=== PATIENT | male | born 1925 | race Caucasian/White ===

== ENCOUNTER 2016-07-30 21:19 | Inpatient (IN) | payer MEDICARE, OTHER ==
[~2016-07-30] VITALS: Ht 160 cm; Wt 69.9 kg
[~2016-07-30 21:19] MED LIST: ACET-2154 PO; ALEN70TA45 PO; AMLO2.5T PO; ASPI81TA31 PO; ATOR10TA PO; BISA10SU61 RC; DOCU-170 PO; GUAI120L56 PO; MAGN400O4 PO; METO25TA6 PO; MULT-1119 PO; TAMS0.4C34 PO; lidocaine viscous PO
--- NOTE | 2016-07-30 22:00 | NUR ---
PT IN ROOM CALM AND COOPERATIVE WITH NO DISTRESS NOTED
[2016-07-30] MEDS ORDERED: LACT1CAP73 PO (22:07)
[2016-07-30] MEDS ORDERED: ALBU2.5V38 IH (22:08)
[2016-07-30] MEDS ORDERED: PANT40TA2 PO (22:08)
[2016-07-30] MEDS ORDERED: DIVA250T4 PO (22:08)
[2016-07-30] MEDS ORDERED: AMLO5TAB2 PO (22:08)
[2016-07-30] MEDS ORDERED: SENN8.6T11 PO (22:08)
[2016-07-30] MEDS ORDERED: MELA3TAB42 PO (22:08)
[2016-07-30 22:56] LABS: BASOPHILS # (AUTO) 0.1 K/uL (0.0-8.0); EOSINOPHILS # (AUTO) 0.2 K/uL (0.0-0.7); EOSINOPHILS % (AUTO) 2.7 % (0.0-7.0); HEMATOCRIT 37.7 % (36.7-47.1); HEMOGLOBIN 12.9 g/dL (12.5-16.3); LYMPHOCYTES # (AUTO) 2.1 K/uL (20.0-40.0); LYMPHOCYTES % (AUTO) 27.4 % (20.5-51.5); MEAN CORPUSCULAR HEMOGLOBIN 31.8 uug (23.8-33.4); MEAN CORPUSCULAR HGB CONC 34 g/dL (32.5-36.3); MEAN CORPUSCULAR VOLUME 92.8 fL (73.0-96.2); MONOCYTES # (AUTO) 0.6 K/uL (2.0-10.0); MONOCYTES % (AUTO) 8.1 % (0.0-11.0); NEUTROPHILS # (AUTO) 4.7 K/uL (1.8-8.9); NEUTROPHILS % (AUTO) 60.8 % (38.5-71.5); PLATELET COUNT (AUTO) 191 K/uL (152-348); RED BLOOD CELL COUNT(AUTO) 4.07 MIL/uL (4.06-5.63); RED CELL DISTRIBUTION WIDTH 13.3 % (12.1-16.2); WHITE BLOOD COUNT (AUTO) 7.7 K/uL (3.6-10.2)
--- NOTE | 2016-07-30 23:09 | NUR ---
PT OUT OF ROOM VIA GURNY FOR CT SCAN
[2016-07-30 23:12] LABS: AMMONIA < 10 umol/L (11-32)
[2016-07-30 23:13] LABS: ALANINE AMINOTRANSFERASE 18 U/L (16-63); ALBUMIN 3.4 g/dL (3.4-5.0); ALKALINE PHOSPHATASE 58 U/L (50-136); ASPARTATE AMINOTRANSFERASE 19 U/L (15-37); BILIRUBIN,DIRECT 0.1 mg/dL (0.0-0.2); BILIRUBIN,TOTAL 0.5 mg/dL (0.2-1.0); CALCIUM 8.8 mg/dL (8.5-10.1); CARBON DIOXIDE 29 mmol/L (21-32); CHLORIDE 105 mmol/L (98-107); CREATININE 1.1 mg/dL (0.6-1.3); GLUCOSE 108 mg/dL (74-106); POTASSIUM 4.2 mmol/L (3.5-5.1); SODIUM SERUM 142 mmol/L (136-145); TOTAL PROTEIN, SERUM 7.9 g/dL (6.4-8.2); UREA NITROGEN, BLOOD 23 mg/dL (7-18)
[2016-07-30 23:17] LABS: *BILIRUBIN,URIN NEGATIVE (NEGATIVE); *BLOOD, URINE 2+ (NEGATIVE); *COLOR,URINE YELLOW (YELLOW); *KETONES,URINE NEGATIVE (NEGATIVE); *PROTEIN,URINE 2+ (NEGATIVE); LEUKOCYTE ESTERASE ,URINE 2+ (NEGATIVE); NITRITE, URINE NEGATIVE (NEGATIVE); UGLUCOSE NEGATIVE (NEGATIVE)
[2016-07-30 23:19] LABS: TROPONIN I 0.022 ng/mL (0.00-0.056)
[2016-07-30 23:21] LABS: ACETAMINOPHEN < 2.0 ug/mL (10-30); LACTIC ACID 0.8 mmol/L (0.4-2.0)
[2016-07-30 23:31] LABS: ETHANOL < 3 MG/DL (0-0)
[2016-07-30 23:36] LABS: *CLARITY,URINE HAZY (CLEAR)
[2016-07-30 23:41] LABS: BACTERIA,URINE MODERATE /HPF (NONE SEEN); RBC,URINE 20-50 /HPF (0-3); SQUAMOUS EPITHELIAL CELL,UR MODERATE /HPF (NONE SEEN); WBC,URINE TNTC /HPF (0-3)
[2016-07-30 23:55] LABS: *AMPHETAMINE, URINE NEGATIVE (NEGATIVE); *BARBITURATE, URINE NEGATIVE (NEGATIVE); *CANNABINOID, URINE NEGATIVE (NEGATIVE); *COCCAINE, URINE NEGATIVE (NEGATIVE); *OPIATE, URINE NEGATIVE (NEGATIVE); *PHENCYCLIDINE SCREEN,URINE NEGATIVE (NEGATIVE)
--- NOTE | 2016-07-31 01:00 | NUR ---
medically cleared by dr blackwell
--- NOTE | 2016-07-31 01:50 | NUR ---
TRANSFERED TO 2ND FLOOR ROOM [facility]
[2016-07-31 01:55] VITALS: BP 162/79
--- NOTE | 2016-07-31 01:55 | NUR ---
PT WAS BROUGHT IN TO FLOOR VIA GURNEY. ADMITTED TO GPS- OVERFLOW UNDER CARE OF DR. DUMONT / DR. PEREZ. DX: PSYCHOSIS. INITIATE ADMISSION ASSESSMENT. BELONGING LISTS REVIEWED. WILL CALL FOR ORDERS.
[2016-07-31] MEDS ORDERED: MAG HYDROX/AL HYDROX/SIMETH 30 ML LIQUID UDC PO PRN (02:45)
[2016-07-31] MEDS ORDERED: ACETAMINOPHEN 325 MG TABLET PO PRN (02:45)
[2016-07-31] MEDS ORDERED: MAGNESIUM HYDROXIDE 30 ML LIQUID UDC PO PRN (02:45)
--- NOTE | 2016-07-31 03:10 | NUR ---
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 PEREZ. TO F/U IN AM REGARDING PT'S MED RECONCILIATION.
[2016-07-31 05:30] VITALS: BP 148/85
--- NOTE | 2016-07-31 06:12 | NUR ---
PT IN BED RESTING, NO SI AT THIS TIME. IN NO ACUTE SIGNS OF DISTRESS. REMAINS IN 1:1 SITTER FOR SAFETY. SAFETY MEASURES RENDERED.
[2016-07-31 07:49] VITALS: BP 153/76
[2016-07-31] MEDS ORDERED: AMLODIPINE 5 MG TABLET PO ONE (08:45)
[2016-07-31] MEDS ORDERED: METOPROLOL TARTRATE 25 MG TABLET PO ONE (08:45)
[2016-07-31] MEDS ORDERED: LACTOBACILLUS COMBO NO 10 PO SCH (10:00)
[2016-07-31] MEDS: PANTOPRAZOLE SODIUM 40 MG TABLET.DR PO SCH (10:00)
[2016-07-31] MEDS ORDERED: Medication Not On Formulary EA (Multivitamin (Multi Vitamin Daily) 1 EACH) PO SCH (10:00)
[2016-07-31] MEDS: CEPHALEXIN MONOHYDRATE 500 MG CAPSULE PO SCH ×3 (11:10→21:22)
[2016-07-31] MEDS: LACTOBACILLUS RHAMNOSUS GG 1 EACH CAPSULE PO SCH ×2 (11:10→21:04)
[2016-07-31] MEDS: DOCUSATE SODIUM 100 MG CAPSULE PO SCH ×2 (11:10→18:17)
[2016-07-31] MEDS: ASPIRIN 81 MG TAB.CHEW PO SCH (11:11)
[2016-07-31] MEDS: METOPROLOL TARTRATE 25 MG TABLET PO SCH ×2 (11:13→20:53)
[2016-07-31] MEDS: AMLODIPINE 5 MG TABLET PO SCH (11:13)
[2016-07-31] MEDS: SENNOSIDES 1 TABLET PO SCH (11:14)
[2016-07-31] MEDS: MULTIVITAMINS,THERAPEUTIC TABLET PO SCH (11:14)
--- NOTE | 2016-07-31 14:48 | NUR ---
Initial discharge plan: Pt currently resides at [facility] [[address];[place] [address]].SW with pt's son[Don, ]and he would like for the pt to return to [facility].BRET spoke with Rebekah [[phone]] from [facility] and she stated that the pt had a bed hold and was able to return when ready.BRET will speak to MD, pt, and family to ensure an appropriate discharge plan is created.SW will form a safe and proper discharge plan.
--- NOTE | 2016-07-31 16:27 | NUR ---
Patient being transferred down to mental health unit. Report given to West. Dr. Cardona came to assess the patient and prescribe psych meds. also aware of plan to transfer Patient does not exhibit agitation or aggression. Alert and oriented.
[2016-07-31] MEDS: TAMSULOSIN HCL 0.4 MG CAP.SR.24H PO SCH (20:52)
[2016-07-31] MEDS: QUETIAPINE FUMARATE 100 MG TABLET PO SCH (20:52)
[2016-07-31] MEDS: DIVALPROEX 250 MG TABLET.DR PO SCH (20:52)
[2016-07-31] MEDS: ATORVASTATIN 10 MG TABLET PO SCH (20:52)
[2016-07-31 20:53] VITALS: BP 112/59
[2016-07-31] MEDS: TEMAZEPAM 7.5 MG CAPSULE PO PRN (23:00)
[2016-08-01] MEDS: CEPHALEXIN MONOHYDRATE 500 MG CAPSULE PO SCH ×3 (06:08→22:52)
[2016-08-01] MEDS: PANTOPRAZOLE SODIUM 40 MG TABLET.DR PO SCH (06:30)
[2016-08-01 07:30] VITALS: BP 142/65
[2016-08-01] MEDS: LORAZEPAM 0.5 MG TABLET PO PRN (08:01)
[2016-08-01] MEDS: DOCUSATE SODIUM 100 MG CAPSULE PO SCH ×2 (08:37→16:49)
[2016-08-01] MEDS: DIVALPROEX 250 MG TABLET.DR PO SCH ×2 (08:37→20:17)
[2016-08-01] MEDS: SENNOSIDES 1 TABLET PO SCH (08:37)
[2016-08-01] MEDS: MULTIVITAMINS,THERAPEUTIC TABLET PO SCH (08:37)
[2016-08-01] MEDS: ASPIRIN 81 MG TAB.CHEW PO SCH (08:37)
[2016-08-01] MEDS: AMLODIPINE 5 MG TABLET PO SCH (08:38)
[2016-08-01] MEDS: LACTOBACILLUS RHAMNOSUS GG 1 EACH CAPSULE PO SCH ×2 (08:38→20:40)
[2016-08-01] MEDS: METOPROLOL TARTRATE 25 MG TABLET PO SCH ×2 (08:38→20:27)
[2016-08-01] MEDS ORDERED: DIVALPROEX 250 MG TABLET.DR PO SCH (09:00)
[2016-08-01 16:00] VITALS: BP 139/66
[2016-08-01] MEDS: QUETIAPINE FUMARATE 100 MG TABLET PO SCH (20:17)
[2016-08-01] MEDS: ATORVASTATIN 10 MG TABLET PO SCH (20:17)
[2016-08-01] MEDS: TAMSULOSIN HCL 0.4 MG CAP.SR.24H PO SCH (20:17)
[2016-08-01 20:48] VITALS: BP 120/62
[2016-08-02] MEDS: TEMAZEPAM 7.5 MG CAPSULE PO PRN ×2 (00:33→22:02)
--- NOTE | 2016-08-02 00:35 | NUR ---
GPS: PATIENT UNABLE TO SLEEP. RESTORIL 7.5 MG PO GIVEN.
--- NOTE | 2016-08-02 01:35 | NUR ---
GPS: PATIENT SLEEPING NOW PRN EFFECTIVE FOR INSOMNIA.
[2016-08-02] MEDS: CEPHALEXIN MONOHYDRATE 500 MG CAPSULE PO SCH ×2 (06:05→13:22)
[2016-08-02] MEDS: PANTOPRAZOLE SODIUM 40 MG TABLET.DR PO SCH (06:05)
--- NOTE | 2016-08-02 06:53 | NUR ---
REMAIN COOPERATIVE WITH MEDS AND CARE.SLEPT 2 HRS ONLY AFTER GIVEN RESTORIL 7.5 MG PO. ASSISTED WITH ADL'S.CONTINUE PLAN OF CARE.
[2016-08-02 07:30] VITALS: BP 143/67
[2016-08-02] MEDS: MULTIVITAMINS,THERAPEUTIC TABLET PO SCH (08:36)
[2016-08-02] MEDS: SENNOSIDES 1 TABLET PO SCH (08:36)
[2016-08-02] MEDS: ASPIRIN 81 MG TAB.CHEW PO SCH (08:36)
[2016-08-02] MEDS: DIVALPROEX 250 MG TABLET.DR PO SCH ×2 (08:36→20:01)
[2016-08-02] MEDS: DOCUSATE SODIUM 100 MG CAPSULE PO SCH ×2 (08:36→17:09)
[2016-08-02] MEDS: LORAZEPAM 0.5 MG TABLET PO PRN (08:36)
[2016-08-02] MEDS: METOPROLOL TARTRATE 25 MG TABLET PO SCH ×2 (08:37→20:01)
[2016-08-02] MEDS: AMLODIPINE 5 MG TABLET PO SCH (08:37)
[2016-08-02] MEDS: LACTOBACILLUS RHAMNOSUS GG 1 EACH CAPSULE PO SCH ×2 (08:38→20:01)
[2016-08-02] MEDS ORDERED: LEVOFLOXACIN 500 MG TABLET PO SCH (15:30)
[2016-08-02 16:00] VITALS: BP 127/60
[2016-08-02] MEDS: CEFTRIAXONE 1 G VIAL IM SCH (17:09)
[2016-08-02] MEDS: ATORVASTATIN 10 MG TABLET PO SCH (20:01)
[2016-08-02] MEDS: TAMSULOSIN HCL 0.4 MG CAP.SR.24H PO SCH (20:01)
[2016-08-02] MEDS: QUETIAPINE FUMARATE 100 MG TABLET PO SCH (20:01)
[2016-08-02 21:02] VITALS: BP 114/72
[2016-08-03] MEDS: LORAZEPAM 0.5 MG TABLET PO PRN (01:12)
--- NOTE | 2016-08-03 01:15 | NUR ---
GPS: Pt.still awake at this time despite taking a sleeping pill earlier. Anxious and slightly restless. Re-directed and re-assured prn. Pt.is confused and disoriented. Incontinence care rendered at this time. Refused Ativan 0.5mg PO despite explanation of risks vs.benefits. Safe enviornment provided. Will continue to monitor.
[2016-08-03] MEDS: PANTOPRAZOLE SODIUM 40 MG TABLET.DR PO SCH (06:14)
[2016-08-03 07:30] VITALS: BP 147/74
[2016-08-03] MEDS: ASPIRIN 81 MG TAB.CHEW PO SCH (08:17)
[2016-08-03] MEDS: MULTIVITAMINS,THERAPEUTIC TABLET PO SCH (08:17)
[2016-08-03] MEDS: DIVALPROEX 250 MG TABLET.DR PO SCH ×2 (08:17→20:11)
[2016-08-03] MEDS: AMLODIPINE 5 MG TABLET PO SCH (08:19)
[2016-08-03] MEDS: DOCUSATE SODIUM 100 MG CAPSULE PO SCH ×2 (08:19→17:11)
[2016-08-03] MEDS: METOPROLOL TARTRATE 25 MG TABLET PO SCH ×2 (08:19→20:11)
[2016-08-03] MEDS: SENNOSIDES 1 TABLET PO SCH (08:19)
[2016-08-03] MEDS: LACTOBACILLUS RHAMNOSUS GG 1 EACH CAPSULE PO SCH ×2 (08:19→20:11)
[2016-08-03 08:40] LABS: ALBUMIN 3.2 g/dL (3.4-5.0); BILIRUBIN,TOTAL 0.3 mg/dL (0.2-1.0); CALCIUM 8.7 mg/dL (8.5-10.1); CREATININE 1.1 mg/dL (0.6-1.3); MAGNESIUM 2.1 mg/dL (1.8-2.4); PHOSPHOROUS 3.6 mg/dL (2.5-4.9); POTASSIUM 4.2 mmol/L (3.5-5.1); TOTAL PROTEIN, SERUM 7.4 g/dL (6.4-8.2)
[2016-08-03 08:41] LABS: BASOPHILS % (AUTO) 0.5 % (0.0-2.0); EOSINOPHILS # (AUTO) 0.3 K/uL (0.0-0.7); EOSINOPHILS % (AUTO) 3.9 % (0.0-7.0); HEMATOCRIT 37.7 % (36.7-47.1); HEMOGLOBIN 12.7 g/dL (12.5-16.3); LYMPHOCYTES # (AUTO) 2.1 K/uL (20.0-40.0); LYMPHOCYTES % (AUTO) 25.8 % (20.5-51.5); MEAN CORPUSCULAR HEMOGLOBIN 31.6 uug (23.8-33.4); MEAN CORPUSCULAR HGB CONC 34 g/dL (32.5-36.3); MEAN CORPUSCULAR VOLUME 93.6 fL (73.0-96.2); MONOCYTES # (AUTO) 0.8 K/uL (2.0-10.0); MONOCYTES % (AUTO) 10.3 % (0.0-11.0); NEUTROPHILS % (AUTO) 59.5 % (38.5-71.5); PLATELET COUNT (AUTO) 190 K/uL (152-348); RED BLOOD CELL COUNT(AUTO) 4.03 MIL/uL (4.06-5.63); RED CELL DISTRIBUTION WIDTH 13.4 % (12.1-16.2); WHITE BLOOD COUNT (AUTO) 8.2 K/uL (3.6-10.2)
--- NOTE | 2016-08-03 08:41 | NUR ---
Link Note [Geropsych Psychosocial Assessment] Reviewed psychosocial done by Rob Lantigua.
[2016-08-03 15:35] VITALS: BP 129/64
[2016-08-03] MEDS: CEFTRIAXONE 1 G VIAL IM SCH (17:11)
[2016-08-03] MEDS: QUETIAPINE FUMARATE 100 MG TABLET PO SCH (20:11)
[2016-08-03] MEDS: ATORVASTATIN 10 MG TABLET PO SCH (20:11)
[2016-08-03] MEDS: TAMSULOSIN HCL 0.4 MG CAP.SR.24H PO SCH (20:11)
[2016-08-03 20:42] VITALS: BP 123/55
[2016-08-03] MEDS: TEMAZEPAM 7.5 MG CAPSULE PO PRN (22:36)
[2016-08-04] MEDS: PANTOPRAZOLE SODIUM 40 MG TABLET.DR PO SCH (06:40)
[2016-08-04 07:44] VITALS: BP 123/75
[2016-08-04] MEDS: QUETIAPINE FUMARATE 25 MG TABLET PO SCH (08:26)
[2016-08-04] MEDS: LACTOBACILLUS RHAMNOSUS GG 1 EACH CAPSULE PO SCH ×3 (08:26→21:42)
[2016-08-04] MEDS: DIVALPROEX 250 MG TABLET.DR PO SCH ×3 (08:26→21:42)
[2016-08-04] MEDS: DOCUSATE SODIUM 100 MG CAPSULE PO SCH ×2 (08:26→16:32)
[2016-08-04] MEDS: ASPIRIN 81 MG TAB.CHEW PO SCH (08:26)
[2016-08-04] MEDS: MULTIVITAMINS,THERAPEUTIC TABLET PO SCH (08:26)
[2016-08-04] MEDS: SENNOSIDES 1 TABLET PO SCH (08:26)
[2016-08-04] MEDS: AMLODIPINE 5 MG TABLET PO SCH (08:27)
[2016-08-04] MEDS: METOPROLOL TARTRATE 25 MG TABLET PO SCH ×2 (08:27→21:00)
[2016-08-04] MEDS: CEFTRIAXONE 1 G VIAL IM SCH (16:32)
[2016-08-04 20:16] VITALS: BP 132/70
[2016-08-04] MEDS: ATORVASTATIN 10 MG TABLET PO SCH ×2 (20:58→21:42)
[2016-08-04] MEDS: TAMSULOSIN HCL 0.4 MG CAP.SR.24H PO SCH ×2 (20:58→21:42)
[2016-08-04] MEDS: QUETIAPINE FUMARATE 100 MG TABLET PO SCH ×2 (20:58→21:43)
--- NOTE | 2016-08-04 21:00 | NUR ---
metoprolol held. HR 52
[2016-08-04] MEDS: TEMAZEPAM 7.5 MG CAPSULE PO PRN (23:05)
[2016-08-05] MEDS ORDERED: ALENDRONATE SODIUM 70 MG TABLET PO SCH (06:00)
--- NOTE | 2016-08-05 06:33 | NUR ---
PT UP IN [facility] AT THIS TIME, HAD SHOWER IN THE MORNING. SLEPT 5.15 HOURS AFTER GIVEN RESTORIL LAST NIGHT. COOPERATIVE WITH MEDS.
[2016-08-05] MEDS: PANTOPRAZOLE SODIUM 40 MG TABLET.DR PO SCH (06:52)
[2016-08-05 07:30] VITALS: BP 152/72
[2016-08-05] MEDS: DOCUSATE SODIUM 100 MG CAPSULE PO SCH ×2 (08:28→17:22)
[2016-08-05] MEDS: AMLODIPINE 5 MG TABLET PO SCH (08:28)
[2016-08-05] MEDS: METOPROLOL TARTRATE 25 MG TABLET PO SCH ×2 (08:31→20:04)
[2016-08-05] MEDS: ASPIRIN 81 MG TAB.CHEW PO SCH (08:32)
[2016-08-05] MEDS: SENNOSIDES 1 TABLET PO SCH (08:32)
[2016-08-05] MEDS: MULTIVITAMINS,THERAPEUTIC TABLET PO SCH (08:32)
[2016-08-05] MEDS: QUETIAPINE FUMARATE 25 MG TABLET PO SCH (08:32)
[2016-08-05] MEDS: DIVALPROEX 250 MG TABLET.DR PO SCH ×2 (08:32→20:04)
[2016-08-05] MEDS: LACTOBACILLUS RHAMNOSUS GG 1 EACH CAPSULE PO SCH ×2 (08:36→20:04)
[2016-08-05 16:00] VITALS: BP 128/62
[2016-08-05] MEDS: CEFTRIAXONE 1 G VIAL IM SCH (17:22)
[2016-08-05 20:00] VITALS: BP 132/64
[2016-08-05] MEDS: ATORVASTATIN 10 MG TABLET PO SCH (20:04)
[2016-08-05] MEDS: TAMSULOSIN HCL 0.4 MG CAP.SR.24H PO SCH (20:04)
[2016-08-05] MEDS: QUETIAPINE FUMARATE 100 MG TABLET PO SCH (20:04)
[2016-08-05] MEDS: TEMAZEPAM 7.5 MG CAPSULE PO PRN (22:43)
--- NOTE | 2016-08-05 23:53 | NUR ---
PATIENT RECEIVED IN BED AWAKE. PATIENT COMPLAINT WITH HS MEDICATION. NO AGGRESSIVE OR COMBATIVE BEHAVIOR NOTED, WILL CONTINUE TO MONITOR. PATIENT REQUIRES FREQUENT REDIRECTION, AND PROMPTING. PATIENT DENIES PAIN AT THIS TIME,WILL CONTINUE TO MONITOR. BED IN LOWEST POSITION, BED LOCKED, AND BED ALARM ON WHILE IN BED. POOR JUDGEMENT NOTED.
[2016-08-06] MEDS: PANTOPRAZOLE SODIUM 40 MG TABLET.DR PO SCH (06:18)
[2016-08-06 07:56] VITALS: BP 131/68
[2016-08-06] MEDS: SENNOSIDES 1 TABLET PO SCH (08:23)
[2016-08-06] MEDS: MULTIVITAMINS,THERAPEUTIC TABLET PO SCH (08:23)
[2016-08-06] MEDS: DIVALPROEX 250 MG TABLET.DR PO SCH ×2 (08:23→20:04)
[2016-08-06] MEDS: QUETIAPINE FUMARATE 25 MG TABLET PO SCH (08:23)
[2016-08-06] MEDS: ASPIRIN 81 MG TAB.CHEW PO SCH (08:23)
[2016-08-06] MEDS: AMLODIPINE 5 MG TABLET PO SCH (08:23)
[2016-08-06] MEDS: DOCUSATE SODIUM 100 MG CAPSULE PO SCH ×2 (08:23→16:33)
[2016-08-06] MEDS: METOPROLOL TARTRATE 25 MG TABLET PO SCH ×2 (08:24→20:05)
[2016-08-06] MEDS: LACTOBACILLUS RHAMNOSUS GG 1 EACH CAPSULE PO SCH ×2 (08:24→20:04)
[2016-08-06 15:05] VITALS: BP 134/65
[2016-08-06] MEDS ORDERED: CEFTRIAXONE 1 G VIAL IM SCH (17:00)
[2016-08-06] MEDS: TAMSULOSIN HCL 0.4 MG CAP.SR.24H PO SCH (20:04)
[2016-08-06] MEDS: QUETIAPINE FUMARATE 100 MG TABLET PO SCH (20:04)
[2016-08-06] MEDS: ATORVASTATIN 10 MG TABLET PO SCH (20:04)
[2016-08-06 20:50] VITALS: BP 154/74
[2016-08-06] MEDS: TEMAZEPAM 7.5 MG CAPSULE PO PRN (22:49)
[2016-08-07] MEDS: LORAZEPAM 0.5 MG TABLET PO PRN (00:09)
[2016-08-07] MEDS: PANTOPRAZOLE SODIUM 40 MG TABLET.DR PO SCH (06:49)
[2016-08-07 08:00] VITALS: BP 157/81
[2016-08-07] MEDS: DIVALPROEX 250 MG TABLET.DR PO SCH (08:30)
[2016-08-07] MEDS: ASPIRIN 81 MG TAB.CHEW PO SCH (08:30)
[2016-08-07] MEDS: SENNOSIDES 1 TABLET PO SCH (08:30)
[2016-08-07] MEDS: MULTIVITAMINS,THERAPEUTIC TABLET PO SCH (08:31)
[2016-08-07] MEDS: METOPROLOL TARTRATE 25 MG TABLET PO SCH (08:31)
[2016-08-07] MEDS: QUETIAPINE FUMARATE 25 MG TABLET PO SCH (08:31)
[2016-08-07] MEDS: DOCUSATE SODIUM 100 MG CAPSULE PO SCH (08:31)
[2016-08-07 08:32] VITALS: BP 157/81
[2016-08-07] MEDS: AMLODIPINE 5 MG TABLET PO SCH (08:32)
[2016-08-07] MEDS: LACTOBACILLUS RHAMNOSUS GG 1 EACH CAPSULE PO SCH (08:32)
--- NOTE | 2016-08-07 09:22 | NUR ---
DC Note: The patient will be discharged today back to [facility] ([facility]) [[address];[place] [address]]. BRET spoke with pt's son [Don, ] who stated that he would like for the patient to return to the facility. Spoke with Rola in admissions who stated that they will be accepting the patient back today and will provide transportation for him at 2:00 pm. The patient will follow-up with hospice volunteer coordinator Dr. Elliott and psychiatrist Dr. Concepcion at the facility.
[2016-08-07 10:08] LABS: CALCIUM 8.8 mg/dL (8.5-10.1); CREATININE 1.2 mg/dL (0.6-1.3); POTASSIUM 4.2 mmol/L (3.5-5.1)
--- NOTE | 2016-08-07 16:00 | NUR ---
1600 CALLED [facility],SNF SPOKE TO CODI GILBERT RN - REPORT GIVEN TO THE NURSE REGARDING PATIENT WILL BE DISCHARGED BACK TO THEIR FACILITY. ALSO, INFORMED ABOUT PATIENT MEDICAL AND MENTAL STATUS STABLE. PATIENT WILL BE TRANSPORTED BY FACILITY TRASPORTATION, MANGLE OPERATOR GARMENTS TIME WILL BE 1400. PATIENT PICKED UP BY TRANSPORTATION AT 1600.
== END 2016-08-07 16:00 | DRG 885 ==
LOC: ER 21:23 → MED 07-31 01:39 → GPSOV 07-31 03:32 → GPS 07-31 17:18
PROVIDERS: ADMIT Psychiatry & Neurology Psychiatry; ATTEND Internal Medicine
DX: F39 Unspecified mood [affective] disorder (principal); N39.0 Urinary tract infection, site not specified; F03.91 Unspecified dementia, unspecified severity, with behavioral disturbance; F20.9 Schizophrenia, unspecified; E78.5 Hyperlipidemia, unspecified; I10 Essential (primary) hypertension; I25.10 Atherosclerotic heart disease of native coronary artery without angina pectoris; N40.0 Benign prostatic hyperplasia without lower urinary tract symptoms; E88.09 Other disorders of plasma-protein metabolism, not elsewhere classified; J32.9 Chronic sinusitis, unspecified; M81.0 Age-related osteoporosis without current pathological fracture; R73.03 Prediabetes; Z95.1 Presence of aortocoronary bypass graft; Z87.01 Personal history of pneumonia (recurrent); F29 Unspecified psychosis not due to a substance or known physiological condition; B96.89 Other specified bacterial agents as the cause of diseases classified elsewhere
CPT/HCPCS: 36415; 70030-TC; 70450; 71010; 80164; 80307; 83605; 83735; 84100; 84443; 85025; 85730; 87040; 87077; 87086; 93005; 97001; 97110; 97116; 97530; A4663; G0480-TC; G6040-TC; J0696; J3490